=== PATIENT | female | born 1940 | race Caucasian/White ===

== ENCOUNTER 2022-02-28 22:17 | Emergency (ER) | payer MEDICARE, SELFPAY ==
[2022-02-28 22:17] VITALS: RESP 18; BMI 17.6
--- NOTE | 2022-02-28 22:23 | CTR_ITS ---
PROCEDURE INFORMATION: Exam: CT Abdomen And Pelvis With Contrast Exam date and time: 02/28/2022 11:11 PM Age: 81 years old Clinical indication: Nausea and vomiting; Patient HX: C/O n/v with tarry stools x 5 days. ; Additional info: Abd pain TECHNIQUE: Imaging protocol: Computed tomography of the abdomen and pelvis with contrast. Radiation optimization: All CT scans at this facility use at least one of these dose optimization techniques: automated exposure control; mA and/or kV adjustment per patient size (includes targeted exams where dose is matched to clinical indication); or iterative reconstruction. Contrast material: VISI 320; Contrast volume: 75 ml; Contrast route: INTRAVENOUS (IV); COMPARISON: CR Pelvis AP 1 or 2 views* [id number] 07/24/2019 1:31 PM RADIATION DOSE METRICS: Total DLP (mGy-cm): 630 FINDINGS: Lungs: Right lower lobe atelectasis versus infiltrate. Trace right pleural effusion. Heart: Cardiomegaly. Liver: Several hepatic cysts. Gallbladder and bile ducts: Normal. No calcified stones. No ductal dilation. Pancreas: Normal. No ductal dilation. Spleen: Normal. No splenomegaly. Adrenal glands: Normal. No mass. Kidneys and ureters: Left kidney cyst, negative for follow up. Stomach and bowel: Prominent fluid in the small bowel suggestive of an enteritis. Mild left colon wall thickening suspected, potentially reflecting a colitis in the appropriate clinical setting. Diverticulosis without diverticulitis. Appendix: No evidence of appendicitis. Intraperitoneal space: Unremarkable. No free air. No significant fluid collection. Arteries: Unremarkable. No abdominal aortic aneurysm. Lymph nodes: Unremarkable. No enlarged lymph nodes. Urinary bladder: Unremarkable as visualized. Reproductive: Unremarkable as visualized. Bones/joints: Several chronic compression fractures in the lumbar spine. Soft tissues: Unremarkable. CT/CT abdomen pelvis w con* [id number] IMPRESSION: 1. Prominent fluid in the small bowel suggestive of an enteritis. 2. Mild left colon wall thickening suspected, potentially reflecting a colitis in the appropriate clinical setting 3. Diverticulosis without diverticulitis. 4. Several chronic compression fractures in the lumbar spine. 5. Left kidney cyst, negative for follow up. 6. Cardiomegaly. 7. Right lower lobe atelectasis versus infiltrate. 8. Several hepatic cysts. 9. Trace right pleural effusion.
[2022-02-28 22:25] VITALS: BP 106/62; PULSE 82; RESP 18; TEMP 36.6; O2SAT 93
--- NOTE | 2022-02-28 22:25 | W.ED.GIBLEED ---
HPI - GI Bleed General: Chief complaint: GI Bleed Stated complaint: ABD PAIN Time Seen by Provider: 02/28/22 22:18 Source: patient and EMS Mode of arrival: EMS Limitations: no limitations History of Present Illness: 81-year-old female who states that throughout the last 2 days she has been having diarrhea today she states she has been having dark tarry stools with her diarrhea along with some diffuse abdominal pain. She had some generalized weakness as well. EMS states that she had diarrhea when they arrived and it was dark in nature states that she was tachycardic at first and was given a bolus heart rate has improved she has not been hypotensive. She has no history of any GI bleed she is not on any blood thinners. Associated symptoms: Denies chills, easy bruising, fever(s), headache(s) or rash Review of Systems Const: Denies: fever(s), chills, body aches or change in appetite Eyes: Denies: blurry vision or eye discomfort ENMT: Denies: throat pain or dental pain Card: Denies: chest pain Resp: Denies: dyspnea GI: Reports: diarrhea and hematochezia : Denies: dysuria Musc: Denies: neck pain or back pain Skin/Breast: Denies: rash Neuro: Denies: headache(s) Psych: Denies: depression Teodoro/Lymph: Denies: easy bruising All/Imm: Denies: urticaria PFSH ED PFSH: Medical History (Updated 03/01/22 @ 00:37 by Shirlene Rodrigues MD) No pertinent past medical history Social History (Updated 02/28/22 @ 22:27 by Shirlene Rodrigues MD) Smoking and tobacco status: current every day smoker Physical Exam Const: COMMON NORMALS: patient oriented x3 and healthy appearing GENERAL APPEARANCE: disheveled and frail appearing HENMT: COMMON NORMALS: normocephalic and atraumatic HEAD & SCALP: normocephalic and atraumatic Eye: COMMON NORMALS: Equal, round and reactive pupils present and EOMs intact bilaterally PUPIL: Yes Equal, round and reactive pupils present Neck/C-Spine: COMMON NORMALS: full ROM and supple Chest: COMMONS NORMALS: normal inspection of the chest and normal palpation of entire chest wall Resp: COMMON NORMALS: normal respiratory effort, No retractions, No use of accessory muscles and clear to auscultation bilaterally AUSCULTATION: clear to auscultation bilaterally Cardio: COMMON NORMALS: regular rate, regular rhythm and No murmurs present (Cardio) RATE: regular rate RHYTHM: regular rhythm GI: COMMON NORMALS: Normal to inspection, nondistended, normoactive bowel sounds present, Soft to palpation, non-tender and no masses PALPATION: Yes Soft to palpation : OTHER: Rectal exam shows some brown stool with no black or obvious blood is slightly Hemoccult positive though Extremity: COMMON NORMALS: normal to inspection and full ROM Neuro: COMMON NORMALS: patient oriented x3, moves all extremities and no focal motor deficits Psych: COMMON NORMALS: mental status grossly normal, Normal thought process present and cooperative THOUGHT PROCESS: Normal thought process present Skin: COMMON NORMALS: no rashes or lesions noted and no wounds GENERAL SKIN EXAM: no rashes or lesions noted Course Vital Signs: Vital signs: Vital Signs Temperature 97.9 F 02/28/22 22:25 Pulse Rate 82 03/01/22 00:25 Respiratory Rate 18 03/01/22 00:25 Blood Pressure 110/67 03/01/22 00:25 Pulse Oximetry 95 03/01/22 00:25 MDM - GI Bleed Medical Decision Making Patient presents with abdominal pain along with diarrhea likely colitis. CT does show colitis she has had diarrhea she has no signs of an upper GI bleed her hemoglobin here is normal rectal exam was Hemoccult positive but no signs of bright red blood or tarry blood. I had a long discussion with patient and shared decision making. I informed her at this time I do not have general surgery or GI on-call. I informed her that we could admit her for IV antibiotics and make sure she does not have a GI bleed but would have to transfer her to [place]. She states that she does not want to go to [place] at this time she feels much improved and would like to go home. I informed her I will start her on Cipro and Flagyl if she changes her mind about being transferred or if she has worsening symptoms she is to return immediately and she understands and agrees to this plan. Lab Data : 02/28/22 23:59 02/28/22 22:25 Radiology Impressions Abdomen/Pelvis CT 02/28/22 22:23 IMPRESSION: 1. Prominent fluid in the small bowel suggestive of an enteritis. 2. Mild left colon wall thickening suspected, potentially reflecting a colitis in the appropriate clinical setting 3. Diverticulosis without diverticulitis. 4. Several chronic compression fractures in the lumbar spine. 5. Left kidney cyst, negative for follow up. 6. Cardiomegaly. 7. Right lower lobe atelectasis versus infiltrate. 8. Several hepatic cysts. 9. Trace right pleural effusion. Laboratory Results WBC 11.7 10^3/uL (4.0-10.0) H 02/28/22 22:25 RBC 4.16 10^6/uL (4.1-5.3) 02/28/22 22:25 Hgb 12.2 g/dL (11.5-15.3) 02/28/22 23:59 Hct 35.1 % (37.0-47.0) L 02/28/22 23:59 MCV 95.2 fl (81-99) 02/28/22 22:25 MCH 32.7 pg (28.0-34.0) 02/28/22 22: MCHC 34.3 g/dL (30.0-36.0) 02/28/22 22:25 RDW 12.1 % (12.1-15.1) 02/28/22 22: Plt Count 140 10^3/cmm (130-400) 02/28/22 22:25 MPV 12.8 fL (7.4-10.4) H 02/28/22 22:25 Neut % (Auto) 92.4 % 02/28/22 22: Lymph % (Auto) 2.3 % 02/28/22 22: [place] % (Auto) 4.7 % 02/28/22 22:25 Eos % (Auto) 0.0 % 02/28/22 22: Baso % (Auto) 0.2 % 02/28/22 22:25 Neut # (Auto) 10.80 10^3/uL (1.8-7.7) H 02/28/22 22:25 Lymph # (Auto) 0.3 10^3/uL (0.8-4.8) L 02/28/22 22:25 [place] # (Auto) 0.6 10^3/uL (0.2-0.9) 02/28/22 22:25 Eos # (Auto) 0.0 10^3/uL (0.0-0.8) 02/28/22 22:25 Baso # (Auto) 0.0 10^3/uL (0.0-0.1) 02/28/22 22:25 Nucleated RBC % (auto) 0 % 02/28/22 22:25 Nucleated RBCs # 0.0 /100WBC 02/28/22 22:25 PT 15.00 SECONDS (12.1-14.9) H 02/28/22 22:44 INR 1.15 (0.8-1.2) 02/28/22 22:44 Sodium 131 mmol/L (136-145) L 02/28/22 22:25 Potassium 3.5 mmol/L (3.5-5.1) 02/28/22 22:25 Chloride 94 mmol/L (98-107) L 02/28/22 22:25 Carbon Dioxide 18 mmol/L (22-29) L 02/28/22 22:25 Anion Gap 22.5 (5-19) H 02/28/22 22:25 BUN 20 mg/dL (8-23) 02/28/22 22:25 Creatinine 1.0 mg/dL (0.5-0.9) H 02/28/22 22:25 GFR Calculation Not Reportable 02/28/22 22:25 Glucose 149 mg/dL (65-115) H 02/28/22 22:25 Calculated Osmolality 277 mOsm/kg (285-295) L 02/28/22 22:25 Calcium 8.0 mg/dL (8.5-10.5) L 02/28/22 22:25 Total Bilirubin 1.1 mg/dL (0.15-1.2) 02/28/22 22:25 AST 37 U/L (0-32) H 02/28/22 22:25 ALT 22 U/L (0-33) 02/28/22 22:25 Alkaline Phosphatase 90 IU/L (35-105) 02/28/22 22:25 Total Protein 6.7 g/dL (6.6-8.7) 02/28/22 22:25 Albumin 3.9 g/dL (3.5-5.2) 02/28/22 22:25 Globulin 2.8 g/dL (1.3-4.6) 02/28/22 22:25 Lipase 16 U/L (13-60) 02/28/22 22:25 Discharge Plan Discharge Patient Disposition: Home Clinical Impression: Colitis, Diarrhea Prescriptions: New Cipro 500 mg tablet 500 mg PO BID Qty: 14 0RF metronidazole 500 mg tablet 500 mg PO BID 7 Days Qty: 14 0RF No Action cyclobenzaprine 10 mg TID 0RF hydroxyzine HCl 25 mg TID 0RF Discharge Orders: Discharge ED (Routine); Ordered 03/01/22 Ordered By: Shirlene Rodrigues Referrals: Sony Mas MD [Physician] - 1-3 days Discharge Diet: Advance as tolerated Discharge Activity: Resume usual activity Patient Instructions: Colitis (ED) Coding Level of Care Code ED Booster Assembler for Chg Fwd Exam Comprehensive
[2022-02-28 22:31] LABS: Basophils % 0.2 %; Hematocrit 39.6 % (37.0-47.0); Hemoglobin 13.6 g/dL (11.5-15.3); Lymphocytes # 0.3 10^3/uL (0.8-4.8); Lymphocytes % 2.3 %; Mean Corpuscular HGB Conc 34.3 g/dL (30.0-36.0); Mean Corpuscular Hemoglobin 32.7 pg (28.0-34.0); Mean Corpuscular Volume 95.2 fl (81-99); Mean Platelet Volume 12.8 fL (7.4-10.4); Monocytes # 0.6 10^3/uL (0.2-0.9); Monocytes % 4.7 %; Neutrophils % 92.4 %; Nucleated Red Blood Cells % 0 %; Platelet Count 140 10^3/cmm (130-400); Red Blood Count 4.16 10^6/uL (4.1-5.3); Red Cell Distribution Width 12.1 % (12.1-15.1); White Blood Count 11.7 10^3/uL (4.0-10.0)
[2022-02-28] MEDS: pantoprazole 40 mg SDV 80 MG IVP (22:36)
[2022-02-28] MEDS: sodium chloride 0.9% 500 ML IV (22:36)
[2022-02-28 22:57] LABS: Alanine Aminotransferase 22 U/L (0-33); Albumin Level 3.9 g/dL (3.5-5.2); Alkaline Phosphatase 90 IU/L (35-105); Anion Gap 22.5 (5-19); Aspartate Amino Transferase 37 U/L (0-32); Blood Urea Nitrogen 20 mg/dL (8-23); Carbon Dioxide 18 mmol/L (22-29); Chloride 94 mmol/L (98-107); Creatinine Clr Calc Pharmacy 36.3063; Globulin 2.8 g/dL (1.3-4.6); Glucose 149 mg/dL (65-115); Lipase 16 U/L (13-60); Osmolality Calculated 277 mOsm/kg (285-295); Potassium 3.5 mmol/L (3.5-5.1); Sodium 131 mmol/L (136-145); Total Bilirubin 1.1 mg/dL (0.15-1.2); Total Protein 6.7 g/dL (6.6-8.7)
[2022-02-28] MEDS: iodixanol 320 mg/mL 100mL Btl IV (23:10)
[2022-02-28 23:14] LABS: INR 1.15 (0.8-1.2)
[2022-03-01 00:03] LABS: Hematocrit 35.1 % (37.0-47.0); Hemoglobin 12.2 g/dL (11.5-15.3)
[2022-03-01 00:25] VITALS: BP 110/67; PULSE 82; RESP 18; O2SAT 95
[2022-03-01 00:52] VITALS: BP 110/67; PULSE 82; RESP 18; O2SAT 95
--- NOTE | 2022-03-01 08:45 | DCPLANNER ---
Addendum entered by Danni Roldan 03/06/22 07:09: research development manager was told by the general surgery clinic that when clinic called patient to schedule a follow up appointment, that patient wanted to follow up with their primary care physician before scheduling an appointment. Patient will call clinic when they want to schedule an appointment. Original Note: research development manager had message to schedule a follow up appointment for patient with general surgery. research development manager sent patients information to the front office staff at general surgery. Patients information will be printed and reviewed. Clinic will call patient with appointment information.
== END 2022-03-01 00:53 | disposition home or self-care (01) ==
PROVIDERS: Emergency Provider Emergency Medicine; PCP Nurse Practitioner Family
DX: K52.9 Noninfective gastroenteritis and colitis, unspecified (principal); R19.7 Diarrhea, unspecified; F17.200 Nicotine dependence, unspecified, uncomplicated
CPT/HCPCS: 36415; 74177; 80053; 83690; 85014; 85018; 85025; 85610; 96361; 96374; 99284; C9113; J7040; Q9967

== ENCOUNTER → 2022-08-13 11:53 | Outpatient (BNVA) | payer MEDICARE, SELFPAY | PROVIDERS: PCP Nurse Practitioner Family; Visit Provider Internal Medicine | DX: R06.09 Other forms of dyspnea (principal); R06.02 Shortness of breath; R07.89 Other chest pain | CPT/HCPCS: 99203; 99204 ==

== ENCOUNTER 2023-06-23 18:09 | Observation (INO) | payer MEDICARE, MEDICAID, SELFPAY ==
[2023-06-23 18:59] VITALS: BP 166/94; PULSE 83; RESP 16; TEMP 36.7; O2SAT 96
[2023-06-23 19:48] VITALS: BMI 17.7
[2023-06-23 20:00] VITALS: BP 164/80; PULSE 84; RESP 17; TEMP 37.8; O2SAT 95
[2023-06-23] MEDS: magnesium citrate Btl 296 mL 592 ML PO (22:46)
[2023-06-23] MEDS: bisacodyl 5 mg Tablet 40 MG PO (22:46)
--- NOTE | 2023-06-23 23:25 | PM.HP ---
Providers/Chief Complaint Admitting Physician: Rocky Sen Primary Care Provider: Rene Costa Chief Complaint: blood per rectum, abd pain, possible abd mass History of Present Illness Leticia Otoole is a 82 year old female who presented to an outside facility with complaint of blood in her stool. A CT of the abdomen was done that could not rule out a colonic mass. It did not demonstrate a definite mass but the bowel loops were described as being closely opposed to limiting assessment with the study. Request was made for transfer to get an MRI of the abdomen and because they were concerned she would get lost to follow-up and might have cancer. Hemoglobin was normal. She has had similar presentation here in February [address] imaging showed findings of mild left colon wall thickening potentially reflecting colitis in the appropriate clinical setting. She was treated empirically with Cipro and Flagyl. She was referred to surgery here but I do not see any appointments with them. She has never had a colonoscopy. In talking with her she has had issues with diarrhea for about a year. Every day for several hours she has frequent episodes of loose stools. She occasionally experiences bright red blood tinged stool. She denies large volumes of bright red blood. She presented to the outside emergency room primarily due to pain in her abdomen. She rated the pain at a 9 out of 10. She described it as a cramping, straining, gas-like pain across her lower abdomen. Normally if she is able to have a bowel movement any abdominal discomfort she has might go away. The pain is not usually this bad and nothing seemed to make it any better. She has not had any recent urinary symptoms. She denies problems with constipation. No fevers. She has had some shortness of breath but has known COPD and continues to smoke. Currently she rates her abdominal pain at a 1 out of 10. Review of Systems General: Reports: Other (ROS as per HPI or as otherwise noted here) Medications/Allergies Home Medications Medication Instructions Recorded Confirmed Last Taken Type hydroxyzine HCl TID 02/28/22 08/13/22 02/28/22 History albuterol sulfate 90 mcg/actuation 2 inh inhalation Q6H PRN 08/13/22 08/13/22 Unknown History breath activated powder inhaler alendronate 70 mg tablet (Fosamax) mg PO 08/13/22 08/13/22 Unknown History cholecalciferol (vitamin D3) 1,250 PO 08/13/22 08/13/22 Unknown History mcg (50,000 unit) capsule cyclobenzaprine 10 mg tablet 10 mg PO TID PRN 08/13/22 08/13/22 Unknown History furosemide 20 mg tablet (Lasix) 10 mg PO QAM 08/13/22 08/13/22 Unknown History levothyroxine 50 mcg tablet 50 mcg PO DAILY 08/13/22 08/13/22 Unknown History (Euthyrox) loperamide 2 mg tablet (Imodium 2 mg PO Q4H PRN 08/13/22 08/13/22 Unknown History A-D) tiotropium 2.5 mcg-olodaterol 2.5 2 puff inhalation DAILY 08/13/22 08/13/22 Unknown History mcg/actuation mist for inhalation (Stiolto Respimat) Allergies Allergy/AdvReac Type Severity Reaction Status Date / Time No Known Allergies Allergy Verified 08/13/22 12:48 Additional Medication Information Above listed home medications are not accurate. Medication reconciliation from outside facility is as follows but has not been able to be independently verified this evening beyond discussion with patient: Lasix 20 mg half a tablet daily Loperamide 2 mg as needed for diarrhea or loose stools Vitamin D 50,000 unit capsule weekly x12 doses Levothyroxine 50 mcg daily Albuterol inhaler as needed Stiolto Respimat 2 puffs daily Nitroglycerin as needed Zoloft 25 mg tablet daily Psyllium capsule 1 daily PFSH Acute PFSH: Medical History (Updated 06/24/23 @ 03:09 by Cathy Plata MD) COPD (chronic obstructive pulmonary disease) Depression Hypertension Hypothyroidism Surgical History (Updated 06/24/23 @ 02:38 by Cathy Plata MD) History of hysterectomy History of surgery History of anal fistula repair Family History (Updated 06/24/23 @ 03:38 by Cathy Plata MD) Father Colitis Mother Diverticulitis Denies family history of Colon cancer Social History (Updated 06/24/23 @ 03:37 by Cathy Plata MD) Smoking and tobacco status: current every day smoker cigarettes Alcohol intake: current Alcohol intake frequency: 0-2 Drinks per Day Alcohol use comment: Has 1-2 drinks before bed most nights of the week but not all Substance/Drug Use: never Vitals/I&O/Wt Last Vital Signs Temp 100.1 F H 06/23/23 20:00 Pulse 84 06/23/23 20:00 Resp 17 06/23/23 20:00 BP 164/80 06/23/23 20:00 Pulse Ox 95 06/23/23 20:00 O2 Del Method Room Air 06/23/23 20:00 06/23/23 06/23/23 06/24/23 14:59 22:59 06:59 Intake Total 240 / 240 Balance 240 / 240 Weight last 48 hrs Weight 51.426 kg Physical Exam Narrative: Patient is awake and alert, able to provide history. Normocephalic. Extraocular movements are intact. Moist mucous membranes. Neck is supple. Lungs are clear to auscultation bilaterally without any rales rhonchi or wheezes. Cardiovascular exam reveals a regular rate and rhythm. Abdomen is soft, mild bilateral lower quadrant tenderness but no rebound or guarding. Positive bowel sounds. No masses palpated. No pitting edema or calf tenderness. Speech is clear, face symmetric, moves all extremities. Data Other Labs: Labs from outside facility are as follows: White count 8000, hemoglobin 13, hematocrit 38, platelet count 138 Sed rate 21, CRP 70.7 TSH 4 proBNP 656 Lipase 12 Sodium 136, potassium 3.7, chloride 101, CO2 21, BUN 17, creatinine 0.9, calcium 9.3, magnesium 1.8, glucose 94, total protein 7.0, albumin 3.9, total bilirubin 1.6, alkaline phosphatase 99, AST 18, ALT 13 Urinalysis showed specific gravity 1.015, pH 7.0, trace leukocyte esterase with negative nitrites, 1+ protein, negative glucose and ketones, 0.2 urobilinogen, negative bilirubin, 1+ blood with micro showing 6-10 white blood cells, 0-2 red blood cells, 3+ bacteria and 0-[address] of the abdomen and pelvis with contrast: showed mild atelectasis in the lung bases. Several liver cyst and several liver hypodensities which are too small to characterize were noted. There was normal enhancement within the hepatic and portal veins. Mild nonspecific prominence of the common bile duct with otherwise unremarkable gallbladder and pancreas. A small hypodensity was noted in the spleen likely representing a small cyst. Mild calcification along the lateral splenic capsule. Unremarkable adrenals and kidneys. There was a relative lack of intra-abdominal body fat and the bowel loops were closely opposed somewhat limiting assessment. A colon mass could not be excluded on the basis of this exam. No definite colon mass was identified. Colonic diverticulosis was noted. There were no definite features of diverticulitis. No suspected appendicitis. Unremarkable bladder. Probable previous hysterectomy. No free fluid. Atherosclerosis was noted. No aortic aneurysm. Multiple chronic compression deformities within the spine and degenerative anterior listhesis at L4-5. No acute bone lesion noted. A&P Assessment and plan (1) Bright red blood per rectum: And abdominal pain. Amount of bright red blood appears to be small and intermittent. Hemoglobin normal. Hemorrhoids seem most likely but diverticular bleed, vascular anomaly, colonic mass, other form of inflammation or infectious process within the differential. Has had at least one prior episode of colitis in 02/2022. (2) Abnormal CT of the abdomen: Report as noted above, unable to rule out colonic mass. Liver cyst and hypodensities noted but too small to characterize. (3) Elevated bilirubin: Mild elevation, unclear significance at this time, other LFTs unremarkable (4) COPD (chronic obstructive pulmonary disease): Chronic, related to smoking, on albuteral and Stiolo respimat (5) Hypertension: Essential, on chronic lasix (6) Hypothyroidism: Acquired, on chronic levothyoxine (7) Depression: On chronic zoloft (8) Nicotine dependence, cigarettes, with other nicotine-induced disorders: Plan Abnormal urinalysis without current urinary symptoms Regular alcohol consumption, 0-2 drinks per night Observation admission Colon prep Surgical consultation for colonoscopy Repeat CBC in the morning Repeat LFTs in the morning As needed breathing treatments Holding home Lasix currently, will monitor blood pressures Continue home levothyroxine Continue home Zoloft Nicotine patch if needed Supportive care otherwise Plans as described were discussed with patient and she was given an opportunity to ask questions VTE prophylaxis: SCDs currently, no pharmacological DVT prophylaxis secondary to bright red blood per rectum GI Prophylaxis: PPI Telemetry: Not currently indicated Shrestha: Not currently indicated Line(s): Peripheral IVs Disposition plan: Anticipate discharge home with outpatient follow-up to primary care provider and possibly general surgery Code Status: Full code Attestations Medical Necessity Statement*: Currently anticipate a stay less than two midnights in a patient with reported bright red blood per rectum and stable hemoglobin. She had a CT abdomen and pelvis that showed closely opposed loops of bowel with limitation in assessment. She was transferred from outside facility due to concern for colonic mass and need for further evaluation. She is being prepped for colonoscopy with plan for procedure in the morning. Diagnoses Bright red blood per rectum K62.[address] of the abdomen R93.5 Elevated bilirubin R17 COPD (chronic obstructive pulmonary disease) J44.9 Hypertension I10 Hypothyroidism E03.9 Depression F32.A Nicotine dependence, cigarettes, with other nicotine-induced disorders F17.218
[2023-06-24] VITALS (15 sets, daily range): BP systolic 108–190; BP diastolic 66–96; PULSE 56–92; RESP 14–18; TEMP 36.1–36.9; O2SAT 93–99
[2023-06-24] MEDS: sodium chlor 0.9% + KCl 20 mEq 20 MEQ/1,000 ML BAG 100 MEQ IV (04:07)
[2023-06-24] MEDS: pantoprazole 40 mg SDV IVP (04:07)
[2023-06-24 05:38] LABS: Basophils % 0.4 %; Eosinophils % 0.6 %; Hemoglobin 13.5 g/dL (11.5-15.3); Lymphocytes # 0.5 10^3/uL (0.8-4.8); Lymphocytes % 6.8 %; Mean Corpuscular HGB Conc 32.9 g/dL (30.0-36.0); Mean Corpuscular Hemoglobin 32.4 pg (28.0-34.0); Mean Corpuscular Volume 98.3 fl (81-99); Mean Platelet Volume 12.1 fL (7.4-10.4); Monocytes # 0.5 10^3/uL (0.2-0.9); Monocytes % 7.1 %; Neutrophils # 5.86 10^3/uL (1.8-7.7); Neutrophils % 84.8 %; Nucleated Red Blood Cells % 0 %; Platelet Count 134 10^3/cmm (130-400); Red Blood Count 4.17 10^6/uL (4.1-5.3); Red Cell Distribution Width 12.4 % (12.1-15.1); White Blood Count 6.9 10^3/uL (4.0-10.0)
[2023-06-24 05:56] LABS: Alanine Aminotransferase 12 U/L (0-33); Albumin Level 4.3 g/dL (3.5-5.2); Alkaline Phosphatase 96 U/L (35-105); Anion Gap 15.5 (5-19); Aspartate Amino Transferase 16 U/L (0-32); Blood Urea Nitrogen 14 mg/dL (8-23); Calcium 9.3 mg/dL (8.5-10.5); Carbon Dioxide 25 mmol/L (22-29); Chloride 100 mmol/L (98-107); Globulin 2.2 g/dL (1.3-4.6); Glucose 125 mg/dL (65-115); Osmolality Calculated 286 mOsm/kg (285-295); Potassium 3.5 mmol/L (3.5-5.1); Sodium 137 mmol/L (136-145); Total Bilirubin 1.2 mg/dL (0.15-1.2); Total Protein 6.5 g/dL (6.6-8.7)
[2023-06-24] MEDS: ondansetron 2 mg/ML SDV 2 mL 4 MG IVP (06:21)
[2023-06-24] MEDS: sertraline 50 mg Tablet 25 MG PO (08:12)
--- NOTE | 2023-06-24 09:18 | PC.PHAR ---
pt states she takes care of her own medications-pt states she takes vit d3 74193 units q7d but states she is unsure what day she takes it on-pt states she takes lasix 10mg daily prn rx filled for 10mg daily on 04/22/23 90d/s-pt states she uses her stiolto respimat prn rx filled 04/22/23 30d/s 2p daily-
--- NOTE | 2023-06-24 11:45 | PC.NURSE ---
Patient left to GI lab.
--- NOTE | 2023-06-24 12:22 | PM.CONSULT ---
Providers/Reason For Consult Consulting Physician/Specialty*: Dr. Daniel Tripp, DO/General surgery Reason for Consult*: GI bleed Attending Physician: Ollie Jara MD Primary Care Provider: Rene Costa History of Present Illness History of Present Illness Leticia Otoole is a 82 year old female who presented to the hospital with hematochezia and abdominal pain. The symptoms have been going on significantly for 3 days she reports. Her pain is dull and constant and located suprapubically. Palpation makes pain worse. Nothing makes pain better. The pain does not radiate. She denies any heartburn, nausea, emesis, diarrhea, constipation and/or melena. She has never had a colonoscopy and does not have a family history of colon cancer Review of Systems General: Reports: 10 or more systems reviewed and unremarkable except in HPI and below Medications/Allergies Home Medications Medication Instructions Recorded Confirmed Last Taken Type cyclobenzaprine 10 mg tablet 10 mg PO TID PRN Muscle Spasm 08/13/22 06/24/23 Unknown History furosemide 20 mg tablet (Lasix) 10 mg PO QAM PRN Edema 08/13/22 06/24/23 Unknown History levothyroxine 50 mcg tablet 50 mcg PO QAM 08/13/22 06/24/23 Unknown History (Euthyrox) loperamide 2 mg tablet (Imodium 2 mg PO Q4H PRN Diarrhea 08/13/22 06/24/23 4 Days Ago History A-D) ~06/20/23 tiotropium 2.5 mcg-olodaterol 2.5 2 puff inhalation DAILY PRN unknown 08/13/22 06/24/23 Unknown History mcg/actuation mist for inhalation (Stiolto Respimat) albuterol sulfate 90 mcg/actuation 2 puff inhalation Q6H PRN 06/24/23 06/24/23 Unknown History aerosol inhaler Shortness Of Breath cholecalciferol (vitamin D3) 1,250 50,000 unit PO Q7D 06/24/23 06/24/23 Unknown History mcg (50,000 unit) capsule nitroglycerin 0.4 mg sublingual 0.4 mg sublingual Q5M PRN Chest 06/24/23 06/24/23 Unknown History tablet (Nitrostat) Pain Allergies Allergy/AdvReac Type Severity Reaction Status Date / Time No Known Allergies Allergy Verified 06/24/23 09:12 Current Medications Generic Name Dose Route Start Last Admin Trade Name Freq PRN Reason Stop Dose Admin Potassium Chloride/Sodium Chloride 20 meq in 1,000 mls @ 100 mls/hr 06/24/23 02:45 06/24/23 09:44 Sodium Chlor 0.9% + Kcl 20 Meq IV 0 mls/hr .Q10H BHARATH Infusion Levothyroxine Sodium 50 mcg 06/24/23 06:00 06/24/23 06:12 Levothyroxine 50 Mcg Tablet PO Not Given QAM BHARATH Ondansetron HCl 4 mg 06/24/23 02:36 06/24/23 06:21 Ondansetron 2 Mg/Ml Sdv 2 Ml IVP 4 mg Q8H PRN Administration vomiting, or N/V if npo Sertraline HCl 25 mg 06/24/23 09:00 06/24/23 08:12 Sertraline 50 Mg Tablet PO 25 mg DAILY BHARATH Administration PFSH Acute PFSH: Medical History COPD (chronic obstructive pulmonary disease) Depression Hypertension Hypothyroidism Surgical History History of hysterectomy History of surgery History of anal fistula repair Family History Father Colitis Mother Diverticulitis Denies family history of Colon cancer Social History Smoking and tobacco status: current every day smoker cigarettes Alcohol intake: current Alcohol intake frequency: 0-2 Drinks per Day Alcohol use comment: Has 1-2 drinks before bed most nights of the week but not all Substance/Drug Use: never Vitals/I&O/Wt Last Vital Signs Temp 97.7 F 06/24/23 11:53 Pulse 69 06/24/23 12:15 Resp 18 06/24/23 12:15 BP 148/93 06/24/23 12:15 Pulse Ox 96 06/24/23 12:15 O2 Del Method Room Air 06/24/23 12:15 06/23/23 06/24/23 06/24/23 22:59 06:59 14:59 Intake Total 240 / 240 561.667 / 561.667 Output Total 300 / 300 Balance 240 / 240 -300 / -60 561.667 / 561.667 Weight last 48 hrs Weight 113 lb 6 oz Physical Exam Narrative: General : Patient is well developed , no acute distress, oriented x3 Head : Normal cephalic, a-traumatic. Ears : Pinnae and external canal are normal. Hearing is normal. Eyes : PERRLA, Sclera and injection are normal. No conjunctival discharge. Nose : Mucous membranes are without erythema. Throat : buccal mucosa is normal, gums are without significant recession or hypertrophy. Lungs : Equal chest rise bilaterally, no use of accessory muscles, trachea is midline. Cor : Rate and rhythm are normal. Abdomen : Soft, ND, NT, no g/r/m Extremities : No edema, no cyanosis or clubbing, dorsalis pedis pulses are present bilaterally, non-tender to palpation of calves. Upper extremities are normal bilaterally. Back : non-tender to palpation, no CVA tenderness. Neuro : CN II - XII intact, Upper and lower extremities have equal and full strength Data 06/24/23 05:22 06/24/23 05:22 A&P Assessment and plan (1) GI bleed: Plan EGD Colonoscopy The risks and benefits of the procedure, including bleeding, infection, intestinal perforation requiring surgery, missed lesion were explained to the patient. The patient is understanding of the risks and wishes to proceed. Coding Level of Care Code 33958 Diagnoses GI bleed K92.2
[2023-06-24] MEDS: sodium chloride 0.9% 1,000 ML 30 ML IV (12:25)
--- NOTE | 2023-06-24 13:34 | ANES.PREANE2 ---
Pre-Anesthetic Assessment Height/Weight: Height 1.7 m Weight 51.426 kg Temp Pulse Resp BP Pulse Ox O2 Del Method 97.7 F 69 18 148/93 96 Room Air 06/24/23 11:53 06/24/23 12:15 06/24/23 12:15 06/24/23 12:15 06/24/23 12:15 06/24/23 12:15 Operation Date: 06/24/23 12:15 Proposed Procedures p EGD(Not Applicable) - DO minoo Tillman Colonoscopy(Not Applicable) - Daniel Tripp DO Familial anesthetic complications: none Was Beta Nahun taken within 24 hours: N/A Was Clonidine taken within 24 hours: N/A Social Tobacco and No alcohol Exam alert, oriented x 3 and regular rate & rhythm Airway Submandibular: within normal limits Cervical ROM: within normal limits Mallampati: Class I Dentition: false Pulmonary Chronic Obstructive Pulmonary Disease CV/HEM Anemia and Hypertension Metabolic Thyroid Disease Neuropsych Anxiety and Depression Anesthetic Plan ASA status: 3 Anesthesia: MAC Medications/Allergies Home Medications Medication Instructions Recorded Confirmed Last Taken Type cyclobenzaprine 10 mg tablet 10 mg PO TID PRN Muscle Spasm 08/13/22 06/24/23 Unknown History furosemide 20 mg tablet (Lasix) 10 mg PO QAM PRN Edema 08/13/22 06/24/23 Unknown History levothyroxine 50 mcg tablet 50 mcg PO QAM 08/13/22 06/24/23 Unknown History (Euthyrox) loperamide 2 mg tablet (Imodium 2 mg PO Q4H PRN Diarrhea 08/13/22 06/24/23 4 Days Ago History A-D) ~06/20/23 tiotropium 2.5 mcg-olodaterol 2.5 2 puff inhalation DAILY PRN unknown 08/13/22 06/24/23 Unknown History mcg/actuation mist for inhalation (Stiolto Respimat) albuterol sulfate 90 mcg/actuation 2 puff inhalation Q6H PRN 06/24/23 06/24/23 Unknown History aerosol inhaler Shortness Of Breath cholecalciferol (vitamin D3) 1,250 50,000 unit PO Q7D 06/24/23 06/24/23 Unknown History mcg (50,000 unit) capsule nitroglycerin 0.4 mg sublingual 0.4 mg sublingual Q5M PRN Chest 06/24/23 06/24/23 Unknown History tablet (Nitrostat) Pain Allergies Allergy/AdvReac Type Severity Reaction Status Date / Time No Known Allergies Allergy Verified 06/24/23 09:12 Current Medications Generic Name Dose Route Start Last Admin Trade Name Freq PRN Reason Stop Dose Admin Potassium Chloride/Sodium Chloride 20 meq in 1,000 mls @ 100 mls/hr 06/24/23 02:45 06/24/23 09:44 Sodium Chlor 0.9% + Kcl 20 Meq IV 0 mls/hr .Q10H BHARATH Infusion Levothyroxine Sodium 50 mcg 06/24/23 06:00 06/24/23 06:12 Levothyroxine 50 Mcg Tablet PO Not Given QAM BHARATH Ondansetron HCl 4 mg 06/24/23 02:36 06/24/23 06:21 Ondansetron 2 Mg/Ml Sdv 2 Ml IVP 4 mg Q8H PRN Administration vomiting, or N/V if npo Sertraline HCl 25 mg 06/24/23 09:00 06/24/23 08:12 Sertraline 50 Mg Tablet PO 25 mg DAILY BHARATH Administration PFSH Anesthesia Medical History COPD (chronic obstructive pulmonary disease) Depression Hypertension Hypothyroidism Surgical History History of hysterectomy History of surgery History of anal fistula repair Family History Father Colitis Mother Diverticulitis Denies family history of Colon cancer Social History Smoking and tobacco status: current every day smoker cigarettes Alcohol intake: current Alcohol intake frequency: 0-2 Drinks per Day Alcohol use comment: Has 1-2 drinks before bed most nights of the week but not all Substance/Drug Use: never Data Anesthesia 06/24/23 05:22 06/24/23 05:22 Short CBC 06/24/23 Range/Units 05:22 WBC 6.9 (4.0-10.0) 10^3/uL Hgb 13.5 (11.5-15.3) g/dL Hct 41.0 (37.0-47.0) % MCV 98.3 (81-99) fl Plt Count 134 (130-400) 10^3/cmm Neut % (Auto) 84.8 % Neut # (Auto) 5.86 (1.8-7.7) 10^3/uL BMP 06/24/23 05:22 Sodium 137 Potassium 3.5 Chloride 100 Carbon Dioxide 25 BUN 14 Creatinine 1.0 H Glucose 125 H Calcium 9.3 Liver Function 06/24/23 Range/Units 05:22 Total Bilirubin 1.2 (0.15-1.2) mg/dL AST 16 (0-32) U/L ALT 12 (0-33) U/L Alkaline Phosphatase 96 (35-105) U/L Albumin 4.3 (3.5-5.2) g/dL Cardiac Studies: No Data to Display
--- NOTE | 2023-06-24 13:49 | P.DS_ITS ---
Discharge Providers Date of Admission: 06/23/23 18:09 Date of Discharge: June 24, 2023 Attending Provider at Admission: Rocky Sen Attending Provider at Discharge: Ollie Jara MD Primary Care Provider: Rene Costa Diagnoses at Discharge Discharge Diagnosis (1) GI bleed: Status: Acute Reason for Visit Reason for Visit: blood per rectum, abd pain, possible abd mass Hospital Course Hospital Course Leticia Otoole is a 82 year old female who presented to an outside facility with complaint of blood in her stool.? A CT of the abdomen was done that could not rule out a colonic mass.? It did not demonstrate a definite mass but the bowel l oops were described as being closely opposed to limiting assessment with the study.? Request was made for transfer to get an MRI of the abdomen and because they were concerned she would get lost to follow-up and might have cancer.? Hemoglobin was normal.? She has had similar presentation here in February [address] imaging showed findings of mild left colon wall thickening potentially reflecting colitis in the appropriate clinical setting.? She was treated empirically with Cipro and Flagyl.? She was referred to surgery here but I do not see any appointments with them.? She has never had a colonoscopy.? In talking with her she has had issues with diarrhea for about a year.? Every day for several hours she has frequent episodes of loose stools.? She occasionally experiences bright red blood tinged stool.? She denies large volumes of bright red blood.? She presented to the outside emergency room primarily due to pain in her abdomen.? She rated the pain at a 9 out of 10.? She described it as a cramping, straining, gas-like pain across her lower abdomen.? Normally if she is able to have a bowel movement any abdominal discomfort she has might go away.? The pain is not usually this bad and nothing seemed to make it any better.? She has not had any recent urinary symptoms.? She denies problems with constipation.? No fevers.? She has had some shortness of breath but has known COPD and continues to smoke.? Currently she rates her abdominal pain at a 1 out of 10. Patient was admitted to [facility] for bright red blood per rectum, hemoglobin remained stable, no current evidence of bloody or black stools, general surgery was consulted, EGD showed hiatal hernia, colonoscopy showed multiple sessile polyps, in the transverse colon, 3 mm to 5 mm, proximal sigmoid colon, multiple sigmoid colon polyps, very large sigmoid colon neck mass on a long stalk could not be removed, there is also a more distal pedunculated sigmoid colon polyp that could be removed as well, colon was inked just distal to the large colon mass, multiple pedunculated polyps, ranging in size from 5 mm to 20 mm were seen, a partially obstructing large size mass was seen, the mass was ambulating, and the rectum multiple sessile polyps ranging in size from 4 mm to 5 mm, a single large sized uncomplicated internal hemorrhoid was seen, there was significant bleeding from internal hemorrhoid. Patient will be discharged on regular diet, Anusol, needs to follow-up telehealth with Dr. Tripp in 1 week. Patient was advised if she were to have any recurrent abdominal pain to go to emergency room. Physical Exam Const: COMMON NORMALS: no acute distress and patient oriented x3 Resp: COMMON NORMALS: normal respiratory effort, No retractions, No use of accessory muscles and clear to auscultation bilaterally AUSCULTATION: clear to auscultation bilaterally Cardio: COMMON NORMALS: regular rate, regular rhythm, S1 normal heart sound present and S2 normal heart sound present RATE: regular rate RHYTHM: regular rhythm HEART SOUNDS: S1 normal heart sound present and S2 normal hea rt sound present GI: COMMON NORMALS: Normal to inspection, nondistended, normoactive bowel sounds present and non-tender Extremity: COMMON NORMALS: no pedal edema Neuro: COMMON NORMALS: patient oriented x3 Psych: COMMON NORMALS: mental status grossly normal Discharge Data Studies Completed and Pending Pending at discharge Category Date Time Status Pathology: Surgical [PTH] Routine Pth 06/24/23 13:36 Ordered Laboratory Results WBC 6.9 10^3/uL (4.0-10.0) 06/24/23 05:22 RBC 4.17 10^6/uL (4.1-5.3) 06/24/23 05:22 Hgb 13.5 g/dL (11.5-15.3) 06/24/23 05:22 Hct 41.0 % (37.0-47.0) 06/24/23 05:22 MCV 98.3 fl (81-99) 06/24/23 05:22 MCH 32.4 pg (28.0-34.0) 06/24/23 05:22 MCHC 32.9 g/dL (30.0-36.0) 06/24/23 05:22 RDW 12.4 % (12.1-15.1) 06/24/23 05:22 Plt Count 134 10^3/cmm (130-400) 06/24/23 05:22 MPV 12.1 fL (7.4-10.4) H 06/24/23 05:22 Neut % (Auto) 84.8 % 06/24/23 05:22 Lymph % (Auto) 6.8 % 06/24/23 05:22 [place] % (Auto) 7.1 % 06/24/23 05:22 Eos % (Auto) 0.6 % 06/24/23 05:22 Baso % (Auto) 0.4 % 06/24/23 05:22 Neut # (Auto) 5.86 10^3/uL (1.8-7.7) 06/24/23 05:22 Lymph # (Auto) 0.5 10^3/uL (0.8-4.8) L 06/24/23 05:22 [place] # (Auto) 0.5 10^3/uL (0.2-0.9) 06/24/23 05:22 Eos # (Auto) 0.0 10^3/uL (0.0-0.8) 06/24/23 05:22 Baso # (Auto) 0.0 10^3/uL (0.0-0.1) 06/24/23 05:22 Nucleated RBC % (auto) 0 % 06/24/23 05:22 Nucleated RBCs # 0.0 /100WBC 06/24/23 05:22 Sodium 137 mmol/L (136-145) 06/24/23 05:22 Potassium 3.5 mmol/L (3.5-5.1) 06/24/23 05:22 Chloride 100 mmol/L (98-107) 06/24/23 05:22 Carbon Dioxide 25 mmol/L (22-29) 06/24/23 05:22 Anion Gap 15.5 (5-19) 06/24/23 05:22 BUN 14 mg/dL (8-23) 06/24/23 05:22 Creatinine 1.0 mg/dL (0.5-0.9) H 06/24/23 05:22 GFR Calculation Not Reportable 06/24/23 05:22 Glucose 125 mg/dL (65-115) H 06/24/23 05:22 Calculated Osmolality 286 mOsm/kg (285-295) 06/24/23 05:22 Calcium 9.3 mg/dL (8.5-10.5) 06/24/23 05:22 Total Bilirubin 1.2 mg/dL (0.15-1.2) 06/24/23 05:22 AST 16 U/L (0-32) 06/24/23 05:22 ALT 12 U/L (0-33) 06/24/23 05:22 Alkaline Phosphatase 96 U/L (35-105) 06/24/23 05:22 Total Protein 6.5 g/dL (6.6-8.7) L 06/24/23 05:22 Albumin 4.3 g/dL (3.5-5.2) 06/24/23 05:22 Globulin 2.2 g/dL (1.3-4.6) 06/24/23 05:22 Vitals Last Vital Signs Temp 97.5 F L 06/24/23 13:26 Pulse 56 L 06/24/23 13:36 Resp 16 06/24/23 13:36 BP 178/85 06/24/23 13:36 Pulse Ox 99 06/24/23 13:36 O2 Del Method Nasal Cannula 06/24/23 13:36 O2 Flow Rate 4 06/24/23 13:36 Discharge Plan Discharge Patient Disposition: Home Condition: Stable Prescriptions: Continued Stiolto Respimat 2.5-2.5 mcg/actuation mist 2 puff inhalation DAILY PRN (Reason: unknown) furosemide [Lasix] 20 mg tablet 10 mg PO QAM PRN (Reason: Edema) levothyroxine [Euthyrox] 50 mcg tablet 50 mcg PO QAM loperamide [Imodium A-D] 2 mg tablet 2 mg PO Q4H PRN (Reason: Diarrhea) Rx Instructions: administer after each loose stool until symptoms controlled; do not exceed 8 mg per 24 hrs cyclobenzaprine 10 mg tablet 10 mg PO TID PRN (Reason: Muscle Spasm) Nitrostat 0.4 mg Tablet, Sublingual 0.4 mg SUBLINGUAL Q5M PRN (Reason: Chest Pain) Rx Instructions: do not exceed 3 doses per episode albuterol sulfate 90 mcg/actuation HFA aerosol inhaler 2 puff INHALATION Q6H PRN (Reason: Shortness Of Breath) cholecalciferol (vitamin D3) 1,250 mcg (50,000 unit) capsule 50,000 unit PO Q7D Discharge Orders: Discharge Order (Routine); Ordered 06/24/23 Ordered By: Ollie Jara Referrals: Daniel Tripp DO [Physician] - 1 week Datar,Mohit Givens MD [Physician] - 1 week (smoking, ) Discharge Diet: Regular Discharge Activity: Resume usual activity Patient Instructions: How to Stop Smoking (DC), GI Discharge Instructions, Opioid Safety, Quitting Smoking Activity Restrictions/Additional Instructions: - Please stop smoking -If have any recurrent bloody or black stools please go to emergency room -Please see general surgery in 1 week -If you were to have any recurrent abdominal pain to go to emergency room Discharge Attestations Time Spent in Discharge Care*: greater than 30 min Quality Metrics Clinical Quality Measures [ No reported AMI, CVA or VTE this stay] Coding Level of Care Code 54013 Total time (in minutes) for Discharge: 45 Diagnoses GI bleed K92.2
--- NOTE | 2023-06-24 14:09 | PC.NURSE ---
Patient arrived back to med/surg 266 from GI lab.
--- NOTE | 2023-06-24 16:49 | ANE.PACU2 ---
Inpatient post-anesthesia follow up: Airway intact: Yes Vital signs: Temperature 98.0 F Pulse Rate 62 Respiratory Rate 17 Blood Pressure 180/87 Pulse Oximetry 96 Oxygen Delivery Me thod Room Air Oxygen Flow Rate 4 Fraction of Inspir ed Oxygen Hydration adequate: Yes Nausea and vomiting: No Pain level: 2 Mental status: Baseline
--- NOTE | 2023-06-24 21:29 | PM.EVENT ---
Event Note Event Note: For reasons unknown, patient does not have transportation home this date. Discharge order placed around 2 PM. I was called around 9 PM with this information. She does not have a medical reason to stay overnight; this is a social situation regarding transportation but 1 we are unable to adequately address at this time. A message to nurse order has been placed holding discharge this evening to allow staff to administer her usual oral medications and meal. A consult to case management has been placed to assist.
--- NOTE | 2023-06-24 21:30 | PC.NURSE ---
PT was planning to discharge via transportation and a ride was not set up correctly, This nurse contacted that the pt will be staying in the hospital tonight. The pt was informed of the transportation not arriving and verbalized understanding and agreed to stay the night and allow nursing staff to care for her.
[2023-06-25] VITALS: BP 137/76; PULSE 81; RESP 16; TEMP 36.7; O2SAT 97
[2023-06-25 04:00] VITALS: BP 135/82; PULSE 67; RESP 17; TEMP 36.6; O2SAT 95
[2023-06-25] MEDS: levothyroxine 50 mcg Tablet PO (05:29)
[2023-06-25 07:57] VITALS: BP 139/85; PULSE 86; RESP 16; TEMP 36.5; O2SAT 92
[2023-06-25] MEDS: pantoprazole DR 40 mg Tablet PO (09:46)
--- NOTE | 2023-06-25 10:01 | PC.CHAP ---
Pastoral Care Encounter/Spiritual Assessment Type of Contact [] Declined clubhouse manager visit [] Patient/Family/Request visit [] Outpatient visit [] Follow-up visit [] Physician referral [] Code/Alert [x] Routine visit [] Staff referral [] Actively dying [] Patient sleeping [] Family support [] [] Out of room [] Palliative care [] [] Receiving care in room [] Pre-surgical visit [] Trauma [] Long length of stay [] ICU visit [] Other: Relational/Emotional Strength [] Patient feels connected with others/family/visitors/staff [x] Distress [] Loneliness/isolation [] Abandonment Spirituality of Patient [x] Person of Sallie [] Attends Pentecostalism of their [place] [] Believes in Prayer [] Reads Bible or Yazidi materials [] There are Spiritual issues to be addressed Boat Cleaning Supervisor Interventions [x] Prayer [x] Active listening [] Non-anxious presence [] Spiritual/emotional support [] Crisis/trauma care [] Spiritual counseling [] Bereavement support [] Provided bereavement packet [] Provided Bible/devotional materials [] Provided toy/stuffed animal, coloring book to patient or family member [] Provided Communion [] Anointing/[place] [] Salvation [x] Completed spiritual assessment [] Other: Impact on Illness or Injury [] Angry [] Fearful [] Anxious [] Often cries [] Exhaustion [] Unable to work [] Unable to attend mosque [] Unable to walk/stand [] Unable to read [] Unable to drive [] Unable to eat/drink [] Unable to sleep [] Unable to be with family [] Patient intubated [] Other: Summary Having trouble finding transport home Time spent with patient 5 min
[2023-06-25 11:16] VITALS: BP 139/85; PULSE 86; RESP 16; TEMP 36.5; O2SAT 92
== END 2023-06-25 11:19 | disposition home or self-care (01) ==
PROVIDERS: Hospitalist; Surgery; Admitting Provider Internal Medicine; PCP Family Medicine; Visit Provider Family Medicine
PROC: 0DJ08ZZ Inspection of Upper Intestinal Tract, Via Natural or Artificial Opening Endoscopic (ICD-10-PCS; CPT 43235; principal; 2023-06-24 12:15)
PROC: 0DJD8ZZ Inspection of Lower Intestinal Tract, Via Natural or Artificial Opening Endoscopic (ICD-10-PCS; CPT 45378; 2023-06-24 12:15)
DX: K62.5 Hemorrhage of anus and rectum (principal); K64.8 Other hemorrhoids; D12.5 Benign neoplasm of sigmoid colon; D12.3 Benign neoplasm of transverse colon; D12.8 Benign neoplasm of rectum; K44.9 Diaphragmatic hernia without obstruction or gangrene; Z75.1 Person awaiting admission to adequate facility elsewhere; R93.5 Abnormal findings on diagnostic imaging of other abdominal regions, including retroperitoneum; R17 Unspecified jaundice; J44.9 Chronic obstructive pulmonary disease, unspecified; I10 Essential (primary) hypertension; E03.9 Hypothyroidism, unspecified; F32.A Depression, unspecified; F17.218 Nicotine dependence, cigarettes, with other nicotine-induced disorders; F17.210 Nicotine dependence, cigarettes, uncomplicated
CPT/HCPCS: 36415; 43235; 45380; 45381; 45385; 80053; 85025; 88305; C9113; G0378; G0379; J2405; J2704; J3480; J7030

== ENCOUNTER → 2023-07-02 10:20 | Outpatient (BNVA) | payer MEDICARE, MEDICAID, SELFPAY | PROVIDERS: PCP Family Medicine; Visit Provider Surgery | DX: K63.5 Polyp of colon (principal) | CPT/HCPCS: 99203; 99213 ==

== ENCOUNTER → 2025-09-22 13:27 | Outpatient (BNVA) | payer MEDICARE, MEDICAID, SELFPAY | PROVIDERS: PCP Family Medicine; Visit Provider Dermatology | DX: C44.319 Basal cell carcinoma of skin of other parts of face (principal); L82.1 Other seborrheic keratosis; T81.89XA Other complications of procedures, not elsewhere classified, initial encounter; X58.XXXA Exposure to other specified factors, initial encounter | CPT/HCPCS: 99213 ==